=== PATIENT | female | born 1965 | race Caucasian/White ===

== ENCOUNTER 2017-06-30 12:10 | Emergency (ER) | payer OTHER ==
--- NOTE | 2017-06-30 13:59 | UC ---
Lower Extremity/Ankle HPI - HPI Summary HPI Summary: 4 DAYS OF RIGHT HEEL REDNESS, TENDERNESS AND SWELLING. NO TRAUMA SHE CAN REMEMBER. HAS PAIN WHEN WALKING. - History of Current Complaint Chief Complaint: UCLowerExtremity Stated Complaint: FOOT PAIN Time Seen by Provider: 06/30/17 13:47 Hx Obtained From: Patient Onset/Duration: Gradual Onset, Lasting Days, Still Present Severity Initially: Moderate Severity Currently: Moderate Pain Intensity: 8 Pain Scale Used: 0-10 Numeric Alleviating Factor(s): Rest, Elevation Able to Bear Weight: Yes - Allergies/Home Medications Allergies/Adverse Reactions: Allergies Allergy/AdvReac Type Severity Reaction Status Date / Time Codeine Allergy Hives/Diff. Verified 06/30/17 12:43 Breathing/I tching/swel ling PMH/Surg Hx/FS Hx/Imm Hx - Additional Past Medical History Additional PMH: ARTHRITIS GI/ History: Gastroesophageal Reflux Psychological History: Bipolar Disorder - Surgical History Surgical History: Yes Surgery Procedure, Year, and Place: hysterectomy 1997 - Family History Known Family History: Negative: Hypertension, Diabetes - Social History Alcohol Use: None Substance Use Type: None Substance Use Comment - Amount & Last Used: past hx of addict Smoking Status (MU): Heavy Every Day Tobacco Smoker Type: Cigarettes Amount Used/How Often: 1 ppd Length of Time of Smoking/Using Tobacco: since age 13 Have You Smoked in the Last Year: Yes Review of Systems Constitutional: Negative Skin: Other - ERYTHEMA Respiratory: Negative Cardiovascular: Negative Gastrointestinal: Negative Musculoskeletal: Other: - RIGHT HEEL PAIN All Other Systems Reviewed And Are Negative: Yes Physical Exam Triage Information Reviewed: Yes Appearance: Well-Appearing, No Pain Distress, Well-Nourished Vital Signs: Initial Vital Signs Temp 96.9 F 06/30/17 12:37 Pulse 78 06/30/17 12:37 Resp 18 06/30/17 12:37 BP 124/100 06/30/17 12:37 Pulse Ox 98 06/30/17 12:37 Vital Signs Reviewed: Yes Eyes: Positive: Conjunctiva Clear ENT: Positive: Hearing grossly normal Neck: Positive: Supple Respiratory: Positive: No respiratory distress, No accessory muscle use Cardiovascular: Positive: Pulses Normal Abdomen Description: Positive: Soft Musculoskeletal: Positive: Other: - TTP AND SWELLING OVER POSTERIOR RIGHT HEEL Neurological: Positive: Alert Psychological: Positive: Age Appropriate Behavior Skin: Positive: Other - ERYTHEMA POSTERIOR RIGHT HEEL Diagnostics - Radiology RIGHT HEEL XRAY Xray Interpretation: No Acute Changes Radiology Interpretation Completed By: Radiologist Lower Extremity Course/Dx - Differential Dx/Diagnosis Provider Diagnoses: RIGHT RETROCALCANEAL BURSITIS Discharge - Discharge Plan Condition: Stable Disposition: HOME Prescriptions: Meloxicam [Mobic] 7.5 mg PO BID PRN #30 tab PRN Reason: Pain Referrals: Dillon Will MD [Primary Care Provider] - If Needed Dimitri Perez MD [Medical Doctor] - 1 Week Additional Instructions: NOTHING ACUTE ON XRAY TODAY. TAKE NSAIDS NEEDED FOR PAIN. WEAR THE BOOT IF IT HELPS YOU WITH AMBULATION. FOLLOW-UP WITH ORTHO. A bursa is a fluid-filled, saclike structure lined by synovial membrane which forms in clefts between mobile structures in the musculoskeletal system. Specific bursitis syndromes may occur with or without inflammation, since many such syndromes are not associated with an inflammatory process but only with tenderness over the affected structure. Bursitis may result from any one or combination of the following causes: direct injury or trauma; prolonged pressure; overuse or strenuous activity; crystal- induced arthropathy; and inflammatory arthritis. With the exception of septic bursitis, the underlying management principle is that bursitis is a self-limited, presumably inflammatory, condition that is reversible. Therefore, the goal of treatment is to relieve the immediate symptoms, to prevent the secondary complications related to immobilization ( muscle atrophy and joint contracture), and to maintain range of motion. Retrocalcaneal bursitis may cause localized swelling and erythema of the posterior heel. The retrocalcaneal bursa occupies the space between the calcaneal bone and the Achilles tendon, and it serves as a cushion to absorb impact when walking.
--- NOTE | 2017-06-30 14:22 | RAD ---
HISTORY: Pain and swelling of the right heel COMPARISONS: None VIEWS: 4, axial, lateral, and bilateral oblique views of the right calcaneus FINDINGS: BONE DENSITY: Normal. BONES: There is no displaced fracture. There are plantar calcaneal enthesophytes. JOINTS: There is no arthropathy. ALIGNMENT: There is no dislocation. SOFT TISSUES: Unremarkable. OTHER FINDINGS: None. IMPRESSION: HEEL SPURS. NO ACUTE OSSEOUS INJURY. IF SYMPTOMS PERSIST, RECOMMEND REPEAT IMAGING.
[2017-06-30 14:25] VITALS: BP 118/78
== END 2017-06-30 14:34 | disposition home or self-care (01) ==
LOC: UCEAST 12:10
DX: M77.51 Other enthesopathy of right foot and ankle (principal); Z88.6 Allergy status to analgesic agent; K21.9 Gastro-esophageal reflux disease without esophagitis; F17.210 Nicotine dependence, cigarettes, uncomplicated
CPT/HCPCS: 99213; G0463